=== PATIENT | female | born 2000 | race Caucasian/White ===

== ENCOUNTER 2019-11-03 19:32 | Emergency (ER) | payer OTHER ==
[~2019-11-03] VITALS: Ht 167.6 cm; Wt 83.9 kg
[2019-11-03 19:41] VITALS: BP_SYST 127
[2019-11-03 21:08] VITALS: BP_SYST 129
== END 2019-11-03 21:08 | disposition home or self-care (01) ==
LOC: SED 19:32
DX: T78.40XA Allergy, unspecified, initial encounter (principal); X58.XXXA Exposure to other specified factors, initial encounter
CPT/HCPCS: 99283